=== PATIENT | male | born 1975 | race Caucasian/White ===

== ENCOUNTER 2018-11-26 15:42 | Inpatient (IN) | payer MEDICAID ==
[~2018-11-26] VITALS: Ht 160 cm; Wt 72.2 kg
[2018-11-26] MEDS ORDERED: HYDROmorphONE 1 MG/ML SYG IV STA ×2 (17:40→19:50)
[2018-11-26] MEDS ORDERED: ONDANSETRON 4 MG INJ IV STA ×2 (17:40→19:50)
[2018-11-26] MEDS ORDERED: SOD CHLORIDE 0.9% 1,000 ML IV STA ×2 (17:40→19:50)
[2018-11-26] MEDS ORDERED: IOHEXOL 300MG/ML 150 ML BTL ONE (18:37)
[2018-11-26] MEDS ORDERED: SOD CHLORIDE 0.9% 100 ML ONE (18:37)
[2018-11-26] MEDS ORDERED: PIPER-TAZO 3.375 GM IV (PMX) 100 ML IVPB STA (19:14)
--- NOTE | 2018-11-26 19:31 | ERD ---
ER Documentation Chief Complaint Chief Complaint ABD PAIN X 6 DAYS DENIES N/V HPI This is a 43-year-old male with no past medical history the presents to the emergency department complaining of a severe onset of abdominal pain. The abdominal pain started at 8 AM this morning roughly 12 hours prior to arrival. The patient had coffee at that time and shortly after had an episode of nonbloody nonbilious emesis. The pain initially started around the patient's bellybutton. He indicates the pain has become diffuse. He states the pain is 10 out of 10 in intensity. No alleviating or exacerbating factors to the pain. Contrary to the triage note the patient states the pain is not been present for 6 days but rather is 8 AM this morning. He denies any past surgical history. He said no fevers or shaking no chills. He has been unable to tolerate oral intake. He denies any hemoptysis hematemesis or melanotic stools. No shortness of breath at rest or exertion. No chest pain or pressure. ROS All systems reviewed and are negative except as per history of present illness. Allergies Allergies: Coded Allergies: No Known Allergy (Unverified , 11/26/18) PMhx/Soc Medical and Surgical Hx: pt denies Medical Hx, pt denies Surgical Hx Hx Alcohol Use: No Hx Substance Use: No Hx Tobacco Use: Yes Smoking Status: Current some day smoker Physical Exam Vitals Vital Signs Date Temp Pulse Resp B/P (MAP) Pulse Ox O2 O2 Flow FiO2 Time Delivery Rate 11/26/18 98.0 98 18 151/92 99 15:50 (111) Physical Exam Constitutional:Well-developed. Well-nourished. Patient has severe amount of p ain. Tearful. HEENT:Normocephalic. Atraumatic.Pupils were equal round reactive to light. Dry mucous membranes.No tonsillar exudates. Neck: No nuchal rigidity. No lymphadenopathy. No posterior cervical spine tenderness or step-offs. Respiratory: Not using accessory muscles of respiration.Lungs were clear to auscultation bilaterally. No rhonchi. No rales. No wheezing. Cardiovascular: Regular rate regular rhythm.No murmurs. No rubs were appreciated.S1, S2 normal. Distal pulses are palpable 2+ bilaterally. GI: Abdomen was soft. Voluntary guarding. Diffuse tenderness. Tenderness in the right lower quadrant over McBurney's point. Psoas sign negative. Obturator sign negative. Muscle skeletal: Full range of motion of both the upper and lower extremities bilaterally.Normal muscle tone.No assymetrical calf tenderness or swelling. Skin: No petechia, no purpura. No lesions on the palms or the soles of the feet. No maculopapular rash. NEURO: Patient was alert, awake, orientated x3.No facial droop. Gait observed and normal with no ataxia.Speech had regular rate and rhythm. No focal neurolo gical deficits. Result Diagram: 11/26/18174611/26/181746 Results 24 hrs Laboratory Tests Test 11/26/18 17:47 White Blood Count 15.2 10^3/ul Red Blood Count 5.05 10^6/ul Hemoglobin 15.3 g/dl Hematocrit 43.6 % Mean Corpuscular Volume 86.3 fl Mean Corpuscular Hemoglobin 30.3 pg Mean Corpuscular Hemoglobin Concent 35.1 g/dl Red Cell Distribution Width 11.9 % Platelet Count 255 10^3/UL Mean Platelet Volume 9.5 fl Immature Granulocytes % 0.300 % Neutrophils % 83.9 % Lymphocytes % 10.6 % Monocytes % 5.0 % Eosinophils % 0.1 % Basophils % 0.1 % Nucleated Red Blood Cells % 0.0 /100WBC Immature Granulocytes # 0.050 10^3/ul Neutrophils # 12.8 10^3/ul Lymphocytes # 1.6 10^3/ul Monocytes # 0.8 10^3/ul Eosinophils # 0.0 10^3/ul Basophils # 0.0 10^3/ul Nucleated Red Blood Cells # 0.0 10^3/ul Prothrombin Time 11.7 Sec Prothrombin Time Ratio 0.9 INR International Normalized Ratio 0.85 Activated Partial Thromboplast Time 29.6 Sec Sodium Level 139 mmol/L Potassium Level 4.1 mmol/L Chloride Level 103 mmol/L Carbon Dioxide Level 21 mmol/L Anion Gap 15 Blood Urea Nitrogen 16 mg/dl Creatinine 0.65 mg/dl Est Glomerular Filtrat Rate mL/min > 60 mL/min Glucose Level 119 mg/dl Calcium Level 10.2 mg/dl Total Bilirubin 1.0 mg/dl Direct Bilirubin 0.00 mg/dl Indirect Bilirubin 1.0 mg/dl Aspartate Amino Transf (AST/SGOT) 32 IU/L Alanine Aminotransferase (ALT/SGPT) 35 IU/L Alkaline Phosphatase 80 IU/L Troponin I < 0.012 ng/ml Total Protein 8.2 g/dl Albumin 4.9 g/dl Globulin 3.30 g/dl Albumin/Globulin Ratio 1.48 Amylase Level 76 U/L Lipase 38 U/L Current Medications Medications Dose Sig/Sloan Start Time Status Last (Trade) Ordered Route PRN Stop Time Admin Dose Reason Admin Sodium 1,000 ml @ Q1H STAT 11/26/18 DC 11/26/18 Chloride 1,000 mls/hr IV 17:40 17:51 11/26/18 18:39 1 mg ONCE STAT 11/26/18 DC 11/26/18 Hydromorphone IV 17:40 17:50 HCl 11/26/18 17:42 (Dilaudid) Ondansetron 4 mg ONCE STAT 11/26/18 DC 11/26/18 HCl (Zofran IV 17:40 17:50 Inj) 11/26/18 17:42 Sodium 100 ml @ ud STK-MED 11/26/18 DC 11/26/18 Chloride ONCE .ROUTE 18:37 19:02 11/26/18 18:38 Iohexol 150 ml STK-MED 11/26/18 DC 11/26/18 (Omnipaque ONCE .ROUTE 18:37 19:02 300mg/ ml) 11/26/18 18:38 Piperacillin 100 ml @ ONCE STAT 11/26/18 Sod/ 200 mls/hr IVPB 19:14 Tazobactam 11/26/18 19:43 Sod Procedures/MDM This patient presented to the emergency department with abdominal pain and was seen and evaluated by myself. My differential diagnosis included but was not limited to abdominal aortic aneurysm, appendicitis, pancreatitis, perforated peptic ulcer, perforated viscus, Boerhaave's syndrome or visceral pain such as diverticulitis, DKA, esophagitis, hepatitis or bowel obstruction. The patient was placed on a laboratory monitor, continuous pulse oximetry, and IV access was established by nursing staff. The patient was given intravenous Dilaudid and Zofran with minimal improvement of his pain. I did obtain a 12-lead EKG tracing to rule out for atypical myocardial infarction. 12 Lead EKG tracing ordered and reviewed by myself showed: Normal sinus rhythm of 77 bpm and no arrhythmia. OH interval normal. QRS duration normal. No ST segment elevation No ST segment depression. No changes consistent with acute ischemia. I obtained a CT scan of the patient's abdomen. This was reviewed by the ra diologist myself. The patient did have a nonruptured appendicitis. He also had sigmoid diverticulosis. The patient at this time had a surgical consult placed to Dr. Brunner. The patient was made n.p.o. He was given IV Zosyn. He required a further dose of analgesic medication. He will be admitted to the hospitalist in serious condition. I obtained a 1 view chest radiograph and there is no in filtrates no free air underneath the diaphragm. Critical Care: Time: 65 minutes Treatments/Evaluations: Close monitoring and treatment of unstable vital signs, cardiorespiratory, and neurologic status, while maintaining tight balance of fluid, respiratory, and cardiac interventions. Time does not include performing any of the above billable procedures. Departure Diagnosis: Primary Impression: Appendicitis Appendicitis type: acute appendicitis Acute appendicitis type: unspecified acute appendicitis type Qualified Codes: K35.80 - Unspecified acute appendicitis Condition: Serious JOSE GREEN MD Nov 26, 2018 19:31
[2018-11-26 22:30] VITALS: BP 155/95; PULSE 73; RESP 18
[2018-11-26 22:43] VITALS: Ht 160 cm; Wt 72.2 kg
[2018-11-26] MEDS ORDERED: ONDANSETRON 4 MG INJ IV PRN (23:00)
[2018-11-26] MEDS ORDERED: ACETAMINOPHEN 650 MG SUPP PR PRN (23:00)
[2018-11-26] MEDS: morphine 2 MG INJ IV PRN (23:26)
[2018-11-26] MEDS: DEXTROSE 5%-0.45% NACL 1,000 ML IV SCH (23:26)
[2018-11-26] MEDS: NACL 0.9% 3 ML SYG IV SCH (23:27)
[2018-11-26] MEDS: PIPER-TAZO 3.375 GM IV (PMX) 100 ML IVPB SCH (23:37)
--- NOTE | 2018-11-26 23:58 | HP ---
Date/Time of Note Date/Time of Note DATE: 11/26/18 TIME: 23:58 Assessment/Plan VTE Prophylaxis Pharmacological prophylaxis: heparin Lines/Catheters IV Catheter Type (from Nrsg): Saline Lock Assessment/Plan Assessment/Plan 1. Acute Appendicitis -keep NPO with IVF -IV Abx -Pain mgmt -Awaiting surgical Eval 2. Diverticulosis with possible mild early diverticulitis -Pt will be NPO and on Abx as above 3. SIRS vs Sepsis: as evidenced by leukocytosis and tachycardia -IVF, abx -see #1 and 2 Result Diagram: 11/26/18174611/26/181746 Results 24hrs Laboratory Tests Test 11/26/18 17:47 White Blood Count 15.2 H Red Blood Count 5.05 Hemoglobin 15.3 Hematocrit 43.6 Mean Corpuscular Volume 86.3 Mean Corpuscular Hemoglobin 30.3 Mean Corpuscular Hemoglobin Concent 35.1 Red Cell Distribution Width 11.9 Platelet Count 255 Mean Platelet Volume 9.5 Immature Granulocytes % 0.300 Neutrophils % 83.9 H Lymphocytes % 10.6 L Monocytes % 5.0 Eosinophils % 0.1 Basophils % 0.1 Nucleated Red Blood Cells % 0.0 Immature Granulocytes # 0.050 H Neutrophils # 12.8 H Lymphocytes # 1.6 Monocytes # 0.8 Eosinophils # 0.0 Basophils # 0.0 Nucleated Red Blood Cells # 0.0 Prothrombin Time 11.7 L Prothrombin Time Ratio 0.9 INR International Normalized Ratio 0.85 Activated Partial Thromboplast Time 29.6 Sodium Level 139 Potassium Level 4.1 Chloride Level 103 Carbon Dioxide Level 21 Anion Gap 15 H Blood Urea Nitrogen 16 Creatinine 0.65 Est Glomerular Filtrat Rate mL/min > 60 Glucose Level 119 Calcium Level 10.2 Total Bilirubin 1.0 Direct Bilirubin 0.00 Indirect Bilirubin 1.0 Aspartate Amino Transf (AST/SGOT) 32 Alanine Aminotransferase (ALT/SGPT) 35 Alkaline Phosphatase 80 Troponin I < 0.012 Total Protein 8.2 H Albumin 4.9 Globulin 3.30 H Albumin/Globulin Ratio 1.48 Amylase Level 76 Lipase 38 HPI/ROS Admit Date/Time Admit Date/Time Nov 26, 2018 at 20:39 Hx of Present Illness Patient is a 43 yo male with so significant PMH who presented to ER c/o abd pain. Pain started this am and mainly localized in mel-umblical area. Reported associated nausea. Denied diarrhea, fever, chills. In ER, CT with finding of acute appendicitis and sigmoid diverticulosis with mild thickening of the colonic wall likely reflecting chronic change. WBC 15K. PMH/Family/Social Past Medical History Past Surgical Hx: other (see HPI) Family History Significant Family History: no pertinent family hx Social History Alcohol Use: none Smoking Status: Never smoker Drug Use: none Exam Constitutional: No acute distress Head: normocephalic, atraumatic Eyes: EOMI, PERRL Respiratory: no distress Cardiovascular: regular rate and rhythm Gastrointestinal: soft Extremities: normal pulses Medications Current Medications Dextrose/Sodium Chloride 1,000 ml @ 120 mls/hr Q8H20M IV Last administered on 11/26/18 23:26; Admin Dose 120 MLS/HR; Start 11/26/18 at 22:42 IV Flush (NS 3 ml) 3 ml PER PROTOCOL IV Last administered on 11/26/18 23:27; Admin Dose 3 ML; Start 11/26/18 at 23:00 Ondansetron HCl (Zofran Inj) 4 mg Q6H PRN IV NAUSEA/VOMITING; Start 11/26/18 at 23:00 Acetaminophen (Tylenol Supp) 650 mg Q6H PRN [place] .PAIN 1-3 OR TEMP; Start 11/26/18 at 23:00 Morphine Sulfate (morphine) 2 mg Q4H PRN IV .SEVERE PAIN 7-10 Last administered on 11/26/18at 23:26; Admin Dose 2 MG; Start 11/26/18 at 23:00 Piperacillin Sod/ Tazobactam Sod 100 ml @ 200 mls/hr Q6 IVPB Last administered on 11/26/18at 23:37; Admin Dose 200 MLS/HR; Start 11/27/18 at 00:00 Coded Allergies: No Known Allergy (Unverified , 11/26/18) Social History Smoking Status: Current every day smoker Exam/Review of Systems Vital Signs Vitals Vital Signs Date Temp Pulse Resp B/P (MAP) Pulse Ox O2 O2 Flow FiO2 Time Delivery Rate 11/26/18 72 20 149/98 98 Room Air 22:02 (115) 11/26/18 98.0 19:27 JV WEBB MD Nov 26, 2018 23:58
[2018-11-27] VITALS (15 sets, daily range): BP systolic 100–148; BP diastolic 52–91; PULSE 72–92; RESP 11–18
--- NOTE | 2018-11-27 00:34 | CONS ---
Assessment/Plan Assessment/Plan Assessment/Plan (Daily) 43-year-old male presents with abdominal pain mid abdomen right lower quadrant suspicious for acute appendicitis without evidence of rupture. Recommendation keep patient n.p.o. IV fluids IV antibiotics and laparoscopic appendectomy as soon as or time can be arranged. Details the procedure risk elin efits alternatives were discussed patient agrees to proceed and we will bring patient operating room as soon as or time can be arranged. In the event that I am not available coverage Surgeon Dr. Weems will assume care Consultation Date/Type/Reason Admit Date/Time Nov 26, 2018 at 20:39 Date of Consultation: Nov 26, 2018 Type of Consult General surgery Reason for Consultation Abdominal pain suspicious for appendicitis Requesting Provider: JOSE GREEN MD Date/Time of Note DATE: 11/27/18 TIME: 00:30 Hx of Present Illness Patient presented to the emergency room with severe abdominal pain in the mid abdomen and localized to the right lower quadrant. Evaluation emergency room with imaging, CAT scan, labs revealed an elevated white blood cell count of 15,000 and CAT scan with dilated inflamed appendix without evidence of perforation. patient denies any similar symptoms to this in the past Patient denies any significant past medical history. Patient denies any past surgical history Past Medical History Medications Current Medications Dextrose/Sodium Chloride 1,000 ml @ 120 mls/hr Q8H20M IV Last administered on 11/26/18at 23:26; Admin Dose 120 MLS/HR; Start 11/26/18 at 22:42 IV Flush (NS 3 ml) 3 ml PER PROTOCOL IV Last administered on 11/26/18at 23:27; Admin Dose 3 ML; Start 11/26/18 at 23:00 Ondansetron HCl (Zofran Inj) 4 mg Q6H PRN IV NAUSEA/VOMITING; Start 11/26/18 at 23:00 Acetaminophen (Tylenol Supp) [address] .PAIN 1-3 OR TEMP; Start 11/26/18 at 23:00 Morphine Sulfate (morphine) 2 mg Q4H PRN IV .SEVERE PAIN 7-10 Last administered on 11/26/18at 23:26; Admin Dose 2 MG; Start 11/26/18 at 23:00 Piperacillin Sod/ Tazobactam Sod 100 ml @ 200 mls/hr Q6 IVPB Last administered on 7/19/19at 23:37; Admin Dose 200 MLS/HR; Start 11/27/18 at 00:00 Allergies: Coded Allergies: No Known Allergy (Unverified , 11/26/18) Social History Smoking Status: Current every day smoker Exam/Review of Systems Exam Vitals Vital Signs Date Temp Pulse Resp B/P (MAP) Pulse Ox O2 O2 Flow FiO2 Time Delivery Rate 11/26/18 72 20 149/98 98 Room Air 22:02 (115) 11/26/18 98.0 19:27 Intake and Output 11/26/18 11/26/18 11/27/18 1515:00 23:00 07:00 IntakeIntake Total 1200 ml BalanceBalance 1200 ml Exam Awake alert oriented x3 Lungs clear to auscultation Heart regular rate and rhythm normal S1-S2 Abdomen nondistended soft marked tenderness right lower quadrant at McBurney's point Results Result Diagram: 11/26/18 1747 11/26/18 1747 Results 24hrs Laboratory Tests Test 11/26/18 17:47 White Blood Count 15.2 H Red Blood Count 5.05 Hemoglobin 15.3 Hematocrit 43.6 Mean Corpuscular Volume 86.3 Mean Corpuscular Hemoglobin 30.3 Mean Corpuscular Hemoglobin Concent 35.1 Red Cell Distribution Width 11.9 Platelet Count 255 Mean Platelet Volume 9.5 Immature Granulocytes % 0.300 Neutrophils % 83.9 H Lymphocytes % 10.6 L Monocytes % 5.0 Eosinophils % 0.1 Basophils % 0.1 Nucleated Red Blood Cells % 0.0 Immature Granulocytes # 0.050 H Neutrophils # 12.8 H Lymphocytes # 1.6 Monocytes # 0.8 Eosinophils # 0.0 Basophils # 0.0 Nucleated Red Blood Cells # 0.0 Prothrombin Time 11.7 L Prothrombin Time Ratio 0.9 INR International Normalized Ratio 0.85 Activated Partial Thromboplast Time 29.6 Sodium Level 139 Potassium Level 4.1 Chloride Level 103 Carbon Dioxide Level 21 Anion Gap 15 H Blood Urea Nitrogen 16 Creatinine 0.65 Est Glomerular Filtrat Rate mL/min > 60 Glucose Level 119 Calcium Level 10.2 Total Bilirubin 1.0 Direct Bilirubin 0.00 Indirect Bilirubin 1.0 Aspartate Amino Transf (AST/SGOT) 32 Alanine Aminotransferase (ALT/SGPT) 35 Alkaline Phosphatase 80 Troponin I < 0.012 Total Protein 8.2 H Albumin 4.9 Globulin 3.30 H Albumin/Globulin Ratio 1.48 Amylase Level 76 Lipase 38 Medications Medication Current Medications Dextrose/Sodium Chloride 1,000 ml @ 120 mls/hr Q8H20M IV Last administered on 11/26/18 23:26; Admin Dose 120 MLS/HR; Start 11/26/18 at 22:42 IV Flush (NS 3 ml) 3 ml PER PROTOCOL IV Last administered on 11/26/18 23:27; Admin Dose 3 ML; Start 11/26/18 at 23:00 Ondansetron HCl (Zofran Inj) 4 mg Q6H PRN IV NAUSEA/VOMITING; Start 11/26/18 at 23:00 Acetaminophen (Tylenol Supp) [address] .PAIN 1-3 OR TEMP; Start 11/26/18 at 23:00 Morphine Sulfate (morphine) 2 mg Q4H PRN IV .SEVERE PAIN 7-10 Last administered on 11/26/18 23:26; Admin Dose 2 MG; Start 11/26/18 at 23:00 Piperacillin Sod/ Tazobactam Sod 100 ml @ 200 mls/hr Q6 IVPB Last administered on 11/26/18 23:37; Admin Dose 200 MLS/HR; Start 11/27/18 at 00:00 JV ALVES MD Nov 27, 2018 00:34
[2018-11-27] MEDS: NACL 0.9% 3 ML SYG IV SCH ×2 (03:41→08:17)
[2018-11-27] MEDS: morphine 2 MG INJ IV PRN ×2 (03:41→08:17)
[2018-11-27] MEDS: PIPER-TAZO 3.375 GM IV (PMX) 100 ML IVPB SCH ×4 (05:48→23:53)
[2018-11-27] MEDS: DEXTROSE 5%-0.45% NACL 1,000 ML IV SCH ×2 (08:17→15:22)
--- NOTE | 2018-11-27 08:35 | PREAC ---
Date/Time of Note Date/Time of Note DATE: 11/27/18 TIME: 08:34 Anesthesia Eval and Record Evaluation Time Pre-Procedure Interview DATE: 11/27/18 TIME: 08:34 Age 43 Sex male NPO: 8 hrs Preoperative diagnosis acute appendicitis Planned procedure laparoscopic appendectomy Past Medical History Past Medical History: Includes GI: Other (diverticulosis) Surgery & Anesthesia Issues No known issue Meds Anticoagulation: No Beta Octavio within 24 hr: No Reason Beta Octavio not given: Pt. not on B-Octavio Current Medications Dextrose/Sodium Chloride 1,000 ml @ 120 mls/hr Q8H20M IV Last administered on 11/27/18at 08:17; Admin Dose 120 MLS/HR; Start 11/26/18 at 22:42 IV Flush (NS 3 ml) 3 ml PER PROTOCOL IV Last administered on 11/27/18at 08:17; Admin Dose 3 ML; Start 11/26/18 at 23:00 Ondansetron HCl (Zofran Inj) 4 mg Q6H PRN IV NAUSEA/VOMITING; Start 11/26/18 at 23:00 Acetaminophen (Tylenol Supp) 650 mg Q6H PRN [place] .PAIN 1-3 OR TEMP; Start 11/26/18 at 23:00 Morphine Sulfate (morphine) 2 mg Q4H PRN IV .SEVERE PAIN 7-10 Last administered on 11/27/18at 08:17; Admin Dose 2 MG; Start 11/26/18 at 23:00 Piperacillin Sod/ Tazobactam Sod 100 ml @ 200 mls/hr Q6 IVPB Last administered on 11/27/18at 05:48; Admin Dose 200 MLS/HR; Start 11/27/18 at 00:00 Meds reviewed: Yes Allergies Coded Allergies: No Known Allergy (Unverified , 11/26/18) Allergies Reviewed: Yes Labs/Studies Labs Reviewed: Reviewed by anesthesiologist Result Diagram: 11/27/1845 11/27/1845 Laboratory Tests 11/27/18 05:45 test: N/A Pre-procedure Exam Last vitals Vital Signs Date Temp Pulse Resp B/P (MAP) Pulse Ox O2 O2 Flow FiO2 Time Delivery Rate 11/27/18 99.1 77 18 127/67 98 08:00 (87) 11/26/18 Room Air 22:02 Airway: Adequate mouth opening, Adequate thyromental dist Mallampati: Mallampati II Teeth: Normal Lung: Normal Heart: Normal ASA Physical Status ASA physical status: 2 Emergency: None Planned Anesthetic General/MAC: ETT Nerve block: TAP (bilateral) Planned Pain Management Single shot nerve block, Parenteral pain med Pre-operative Attestations Prior to commencing anesthesia and surgery, the patient was re-evaluated, there was verification of: *The patient's identity *The results of appropriate recent lab work and preoperative vital signs *The above evaluation not changing prior to induction *Anesthetic plan, risk benefits, alternative and complications discussed with patient/family; questions answered; patient/family understands, accepts and wishes to proceed. Machine Shop Worker used RONNIE FARLEY MD Nov 27, 2018 08:35
[2018-11-27] MEDS ORDERED: ROCURONIUM 50 MG INJ ONE (08:53)
[2018-11-27] MEDS ORDERED: ROPIVACAINE 0.5 % 30 ML VIAL ONE (08:53)
--- NOTE | 2018-11-27 09:05 | PN ---
Date/Time of Note Date/Time of Note DATE: 11/27/18 TIME: 09:03 Assessment/Plan VTE Prophylaxis Risk score (from [facility] [place])>0 risk: 1 SCD applied (from Ns): Yes Pharmacological prophylaxis: NA/contraindicated Pharm contraindication: low risk/ambulating Lines/Catheters IV [facility] Saline Lock Assessment/Plan Hospital Course 1. Acute Appendicitis -keep NPO Continue IV fluids Continue antibiotics -Pain mgmt Plan for surgery today 2. Diverticulosis with possible mild early diverticulitis Surgeon following. Continue IV fluids Continue antibiotics 3. SIRS vs Sepsis: as evidenced by leukocytosis and tachycardia -IVF, abx Antipyretics as needed for fever Disposition plan. Still reports of pain. Continue analgesics. Plan for surgery today. Monitor in-house. Discussed POC with Dr. Lucero Result Diagram: 11/27/1845 11/27/18 0545 Results 24hrs Laboratory Tests Test 11/26/18 17:47 11/27/18 05:45 White Blood Count 15.2 H 13.7 H Red Blood Count 5.05 4.57 L Hemoglobin 15.3 13.9 L Hematocrit 43.6 39.9 L Mean Corpuscular Volume 86.3 87.3 Mean Corpuscular Hemoglobin 30.3 30.4 Mean Corpuscular Hemoglobin Concent 35.1 34.8 Red Cell Distribution Width 11.9 11.9 Platelet Count 255 232 Mean Platelet Volume 9.5 9.7 Immature Granulocytes % 0.300 0.400 Neutrophils % 83.9 H 78.5 H Lymphocytes % 10.6 L 12.6 L Monocytes % 5.0 8.3 Eosinophils % 0.1 0.1 Basophils % 0.1 0.1 Nucleated Red Blood Cells % 0.0 0.0 Immature Granulocytes # 0.050 H 0.060 H Neutrophils # 12.8 H 10.7 H Lymphocytes # 1.6 1.7 Monocytes # 0.8 1.1 H Eosinophils # 0.0 0.0 Basophils # 0.0 0.0 Nucleated Red Blood Cells # 0.0 0.0 Prothrombin Time 11.7 L Prothrombin Time Ratio 0.9 INR International Normalized Ratio 0.85 Activated Partial Thromboplast Time 29.6 Sodium Level 139 139 Potassium Level 4.1 3.6 Chloride Level 103 105 Carbon Dioxide Level 21 24 Anion Gap 15 H 10 # Blood Urea Nitrogen 16 8 Creatinine 0.65 0.56 L Est Glomerular Filtrat Rate mL/min > 60 > 60 Glucose Level 119 149 Calcium Level 10.2 8.3 L Total Bilirubin 1.0 1.2 Direct Bilirubin 0.00 0.00 Indirect Bilirubin 1.0 1.2 H Aspartate Amino Transf (AST/SGOT) 32 25 Alanine Aminotransferase (ALT/SGPT) 35 28 Alkaline Phosphatase 80 55 Troponin I < 0.012 Total Protein 8.2 H 6.7 # Albumin 4.9 3.7 # Globulin 3.30 H 3.00 Albumin/Globulin Ratio 1.48 1.23 Amylase Level 76 Lipase 38 Phosphorus Level 3.4 Magnesium Level 1.9 Subjective 24 Hr Interval Summary Free Text/Dictation Patient seen. RN at bedside. Still reports pain on right lower abdominal quadrant. Tentative plan for surgery today. Exam/Review of Systems Exam Vitals Vital Signs Date Temp Pulse Resp B/P (MAP) Pulse Ox O2 O2 Flow FiO2 Time Delivery Rate 11/27/18 99.1 77 18 127/67 98 08:00 (87) 11/26/18 Room Air 22:02 Intake and Output 11/26/18 11/26/18 11/27/18 1515:00 23:00 07:00 IntakeIntake Total 1200 ml 1040 ml BalanceBalance 1200 ml 1040 ml Constitutional: alert, oriented Psych: nl mood/affect Head: normocephalic Neck: supple, non-tender Respiratory: clear to auscultation Cardiovascular: regular rate and rhythm Gastrointestinal: soft, tender Neurological: ASSEMBLY LEAD PERSON II-XII intact, nl mental status, nl speech Skin: nl turgor Results Results 24hrs Laboratory Tests Test 11/26/18 17:47 11/27/18 05:45 White Blood Count 15.2 H 13.7 H Red Blood Count 5.05 4.57 L Hemoglobin 15.3 13.9 L Hematocrit 43.6 39.9 L Mean Corpuscular Volume 86.3 87.3 Mean Corpuscular Hemoglobin 30.3 30.4 Mean Corpuscular Hemoglobin Concent 35.1 34.8 Red Cell Distribution Width 11.9 11.9 Platelet Count 255 232 Mean Platelet Volume 9.5 9.7 Immature Granulocytes % 0.300 0.400 Neutrophils % 83.9 H 78.5 H Lymphocytes % 10.6 L 12.6 L Monocytes % 5.0 8.3 Eosinophils % 0.1 0.1 Basophils % 0.1 0.1 Nucleated Red Blood Cells % 0.0 0.0 Immature Granulocytes # 0.050 H 0.060 H Neutrophils # 12.8 H 10.7 H Lymphocytes # 1.6 1.7 Monocytes # 0.8 1.1 H Eosinophils # 0.0 0.0 Basophils # 0.0 0.0 Nucleated Red Blood Cells # 0.0 0.0 Prothrombin Time 11.7 L Prothrombin Time Ratio 0.9 INR International Normalized Ratio 0.85 Activated Partial Thromboplast Time 29.6 Sodium Level 139 139 Potassium Level 4.1 3.6 Chloride Level 103 105 Carbon Dioxide Level 21 24 Anion Gap 15 H 10 # Blood Urea Nitrogen 16 8 Creatinine 0.65 0.56 L Est Glomerular Filtrat Rate mL/min > 60 > 60 Glucose Level 119 149 Calcium Level 10.2 8.3 L Total Bilirubin 1.0 1.2 Direct Bilirubin 0.00 0.00 Indirect Bilirubin 1.0 1.2 H Aspartate Amino Transf (AST/SGOT) 32 25 Alanine Aminotransferase (ALT/SGPT) 35 28 Alkaline Phosphatase 80 55 Troponin I < 0.012 Total Protein 8.2 H 6.7 # Albumin 4.9 3.7 # Globulin 3.30 H 3.00 Albumin/Globulin Ratio 1.48 1.23 Amylase Level 76 Lipase 38 Phosphorus Level 3.4 Magnesium Level 1.9 Medications Medication Current Medications Dextrose/Sodium Chloride 1,000 ml @ 120 mls/hr Q8H20M IV Last administered on 11/27/18 08:17; Admin Dose 120 MLS/HR; Start 11/26/18 at 22:42 IV Flush (NS 3 ml) 3 ml PER PROTOCOL IV Last administered on 11/27/18at 08:17; Admin Dose 3 ML; Start 11/26/18 at 23:00 Ondansetron HCl (Zofran Inj) 4 mg Q6H PRN IV NAUSEA/VOMITING; Start 11/26/18 at 23:00 Acetaminophen (Tylenol Supp) 650 mg Q6H PRN [place] .PAIN 1-3 OR TEMP; Start 11/26/18 at 23:00 Morphine Sulfate (morphine) 2 mg Q4H PRN IV .SEVERE PAIN 7-10 Last administered on 11/27/18at 08:17; Admin Dose 2 MG; Start 11/26/18 at 23:00 Piperacillin Sod/ Tazobactam Sod 100 ml @ 200 mls/hr Q6 IVPB Last administered on 11/27/18at 05:48; Admin Dose 200 MLS/HR; Start 11/27/18 at 00:00 LEX AGUILERA NP Nov 27, 2018 09:05
[2018-11-27] MEDS ORDERED: morphine 2 MG INJ IV STA (09:52)
[2018-11-27] MEDS ORDERED: FENTAnyl 50 MCG/ML VIAL ONE (10:20)
[2018-11-27] MEDS ORDERED: PROPOFOL 20 ML ONE (10:20)
[2018-11-27] MEDS ORDERED: MIDAZOLAM 1 MG/ML 2 ML INJ ONE (10:20)
[2018-11-27] MEDS ORDERED: SUCCINYLCHOLINE CHLORIDE 100 MG/5 ML SYG IV ONE (10:20)
[2018-11-27] MEDS ORDERED: LIDOCAINE 2% (SDV) 5 ML INJ ONE (10:20)
[2018-11-27] MEDS ORDERED: BUPIVACAINE 0.25%/EPI (SDV) 30 ML INJ ONE (10:38)
--- NOTE | 2018-11-27 10:38 | CONS ---
Assessment/Plan Assessment/Plan Hospital Course (Demo Recall) Patient admitted to the hospital received fluids and pain medication and antibiotics, CT showed Acute appendicitis -- pt was scheduled for the OR overnight bc of other emergency cases the case was pushed to early am and the care was tx to Dr. Almaguer Assessment/Plan (Daily) Acute appendicitis, SIRS, possible early diverticulitis Plan for Lap appendectomy, possible open, Continue IV antibx, pain control, Sepsis protocol w fluids. Consultation Date/Type/Reason Admit Date/Time Nov 26, 2018 at 20:39 Type of Consult Gen Surg Reason for Consultation Evaluation of acute appendicitis -- care of pt was transferred to [place] from Dr. Moses overnight OR was busy with emergency and could not accommodate this case. Date/Time of Note DATE: 11/27/18 TIME: 10:31 Hx of Present Illness Patient is a 43 yo male with so significant PMH who presented to ER c/o abd pain. Pain started this am and mainly localized in mel-umblical area. Reported associated nausea. Denied diarrhea, fever, chills. In ER, CT with finding of acute appendicitis and sigmoid diverticulosis with mild thickening of the colonic wall likely reflecting chronic change. WBC 15K. Past Medical History Medications Current Medications Dextrose/Sodium Chloride 1,000 ml @ 120 mls/hr Q8H20M IV Last administered on 11/27/18at 08:17; Admin Dose 120 MLS/HR; Start 11/26/18 at 22:42 IV Flush (NS 3 ml) 3 ml PER PROTOCOL IV Last administered on 11/27/18at 08:17; Admin Dose 3 ML; Start 11/26/18 at 23:00 Ondansetron HCl (Zofran Inj) 4 mg Q6H PRN IV NAUSEA/VOMITING; Start 11/26/18 at 23:00 Acetaminophen (Tylenol Supp) 650 mg Q6H PRN [place] .PAIN 1-3 OR TEMP; Start 11/26/18 at 23:00 Morphine Sulfate (morphine) 2 mg Q4H PRN IV .SEVERE PAIN 7-10 Last administered on 11/27/18at 08:17; Admin Dose 2 MG; Start 11/26/18 at 23:00 Piperacillin Sod/ Tazobactam Sod 100 ml @ 200 mls/hr Q6 IVPB Last administered on 11/27/18at 05:48; Admin Dose 200 MLS/HR; Start 11/27/18 at 00:00 Allergies: Coded Allergies: No Known Allergy (Unverified , 11/26/18) Social History Smoking Status: Current every day smoker Exam/Review of Systems Exam Vitals Vital Signs Date Temp Pulse Resp B/P (MAP) Pulse Ox O2 O2 Flow FiO2 Time Delivery Rate 11/27/18 99.1 77 18 127/67 98 08:00 (87) 11/26/18 Room Air 22:02 Intake and Output 11/26/18 11/26/18 11/27/18 1515:00 23:00 07:00 IntakeIntake Total 1200 ml 1040 ml BalanceBalance 1200 ml 1040 ml Results Result Diagram: 11/27/18 0545 11/27/18 0545 Results 24hrs Laboratory Tests Test 11/26/18 17:47 11/27/18 05:45 White Blood Count 15.2 H 13.7 H Red Blood Count 5.05 4.57 L Hemoglobin 15.3 13.9 L Hematocrit 43.6 39.9 L Mean Corpuscular Volume 86.3 87.3 Mean Corpuscular Hemoglobin 30.3 30.4 Mean Corpuscular Hemoglobin Concent 35.1 34.8 Red Cell Distribution Width 11.9 11.9 Platelet Count 255 232 Mean Platelet Volume 9.5 9.7 Immature Granulocytes % 0.300 0.400 Neutrophils % 83.9 H 78.5 H Lymphocytes % 10.6 L 12.6 L Monocytes % 5.0 8.3 Eosinophils % 0.1 0.1 Basophils % 0.1 0.1 Nucleated Red Blood Cells % 0.0 0.0 Immature Granulocytes # 0.050 H 0.060 H Neutrophils # 12.8 H 10.7 H Lymphocytes # 1.6 1.7 Monocytes # 0.8 1.1 H Eosinophils # 0.0 0.0 Basophils # 0.0 0.0 Nucleated Red Blood Cells # 0.0 0.0 Prothrombin Time 11.7 L Prothrombin Time Ratio 0.9 INR International Normalized Ratio 0.85 Activated Partial Thromboplast Time 29.6 Sodium Level 139 139 Potassium Level 4.1 3.6 Chloride Level 103 105 Carbon Dioxide Level 21 24 Anion Gap 15 H 10 # Blood Urea Nitrogen 16 8 Creatinine 0.65 0.56 L Est Glomerular Filtrat Rate mL/min > 60 > 60 Glucose Level 119 149 Calcium Level 10.2 8.3 L Total Bilirubin 1.0 1.2 Direct Bilirubin 0.00 0.00 Indirect Bilirubin 1.0 1.2 H Aspartate Amino Transf (AST/SGOT) 32 25 Alanine Aminotransferase (ALT/SGPT) 35 28 Alkaline Phosphatase 80 55 Troponin I < 0.012 Total Protein 8.2 H 6.7 # Albumin 4.9 3.7 # Globulin 3.30 H 3.00 Albumin/Globulin Ratio 1.48 1.23 Amylase Level 76 Lipase 38 Phosphorus Level 3.4 Magnesium Level 1.9 Imaging Imaging IMPRESSION: 1. Dilated appendix with hyperemia and mild periappendiceal inflammation consistent with acute appendicitis. 2. Sigmoid diverticulosis with mild thickening of the colonic wall likely reflecting chronic change. A component of mild early diverticulitis cannot be completely excluded. 3. No free fluid, free air, abscess is seen. Medications Medication Current Medications Dextrose/Sodium Chloride 1,000 ml @ 120 mls/hr Q8H20M IV Last administered on 11/27/18 08:17; Admin Dose 120 MLS/HR; Start 11/26/18 at 22:42 IV Flush (NS 3 ml) 3 ml PER PROTOCOL IV Last administered on 11/27/18 08:17; A dmin Dose 3 ML; Start 11/26/18 at 23:00 Ondansetron HCl (Zofran Inj) 4 mg Q6H PRN IV NAUSEA/VOMITING; Start 11/26/18 at 23:00 Acetaminophen (Tylenol Supp) 650 mg Q6H PRN [place] .PAIN 1-3 OR TEMP; Start 11/26/18 at 23:00 Morphine Sulfate (morphine) 2 mg Q4H PRN IV .SEVERE PAIN 7-10 Last administered on 11/27/18 08:17; Admin Dose 2 MG; Start 11/26/18 at 23:00 Piperacillin Sod/ Tazobactam Sod 100 ml @ 200 mls/hr Q6 IVPB Last administered on 11/27/18 05:48; Admin Dose 200 MLS/HR; Start 11/27/18 at 00:00 JAMES SALAZAR MD Nov 27, 2018 10:38
[2018-11-27] MEDS ORDERED: CEFAZOLIN 1 GM INJ ONE (10:41)
[2018-11-27] MEDS ORDERED: DEXAMETHASONE 4 MG/ML 5 ML INJ ONE (10:44)
[2018-11-27] MEDS ORDERED: ONDANSETRON 4 MG INJ ONE (10:44)
[2018-11-27] MEDS ORDERED: ONDANSETRON 4 MG INJ IV PRN ×2 (11:00→12:00)
[2018-11-27] MEDS ORDERED: DIPHENHYDRAMINE 50 MG INJ IV PRN ×2 (11:00→12:00)
[2018-11-27] MEDS ORDERED: PROCHLORPERAZINE 10 MG INJ IV PRN (11:00)
[2018-11-27] MEDS ORDERED: MEPERIDINE 25 MG INJ IV PRN (11:00)
[2018-11-27] MEDS ORDERED: EPHEDrine 25 MG/5 ML SYG IV PRN (11:00)
[2018-11-27] MEDS ORDERED: LABETALOL HCL 20MG INJ IV PRN (11:00)
[2018-11-27] MEDS ORDERED: hydrALAzine 20 MG INJ IV PRN (11:00)
[2018-11-27] MEDS ORDERED: FENTAnyl 50 MCG/ML VIAL IV PRN ×3 (11:00)
[2018-11-27] MEDS ORDERED: HYDROmorphONE 1 MG/5 ML IV SYRINGE IV PRN ×3 (11:00)
[2018-11-27] MEDS ORDERED: GLYCOPYRROLATE 0.4 MG INJ ONE (11:08)
[2018-11-27] MEDS ORDERED: NEOSTIGMINE 3 MG/3 ML SYRINGE ONE (11:08)
[2018-11-27] MEDS ORDERED: KETOROLAC 30 MG INJ ONE (11:09)
[2018-11-27] MEDS ORDERED: HYDROmorphONE 2 MG/ML SYG ONE (11:10)
--- NOTE | 2018-11-27 11:33 | SIPON ---
Date/Time of Note Date/Time of Note DATE: 11/27/18 TIME: 11:30 Operative Report Preoperative Diagnosis Acute Appendicitis Postoperative Diagnosis Necrotic Appendicitis Operation/Procedure Performed Laparoscopic appendectomy and TAP block anesthesia Surgeon Cirilo Weems MD assistant at surgery N/a Anesthesia: general, other Estimated blood loss: minimal Transfusion Required none Specimen appendix Grafts/Implants none Complications none CIRILO WEEMS MD Nov 27, 2018 11:33
--- NOTE | 2018-11-27 11:37 | PAC ---
Date/Time of Note Date/Time of Note DATE: 11/27/18 TIME: 11:36 Post-Anesthesia Notes Post-Anesthesia Note Last documented vital signs Vital Signs Date Temp Pulse Resp B/P (MAP) Pulse Ox O2 O2 Flow FiO2 Time Delivery Rate 11/27/18 99.1 77 18 127/67 98 08:00 (87) 11/26/18 Room Air 22:02 Activity: WNL Respiratory function: WNL Cardiovascular function: WNL Mental status: Baseline Pain reasonably controlled: Yes Hydration appropriate: Yes Nausea/Vomiting absent: Yes Comments BP: 105/62 HR: 90 RR: 15 T: 98.8 SaO2: 100% RONNIE FARLEY MD Nov 27, 2018 11:37
[2018-11-27] MEDS ORDERED: KETOROLAC 30 MG INJ IV PRN (12:00)
[2018-11-27] MEDS ORDERED: HYDROCODONE/APAP (5/325) TAB PO PRN (12:00)
[2018-11-27] MEDS: LACTATED RINGER'S 1,000 ML IV SCH ×2 (13:03→23:53)
--- NOTE | 2018-11-27 14:01 | OPR ---
DATE OF OPERATION: PREOPERATIVE DIAGNOSES: 1. Acute abdominal pain. 2. Possible acute appendicitis. 3. Sepsis. 4. Possible early diverticulitis. POSTOPERATIVE DIAGNOSES: Acute necrotic appendicitis. PROCEDURE PERFORMED: Laparoscopic appendectomy and lysis of adhesions. SURGEON: Dr. Cirilo Weems. COMPLICATIONS: None. ESTIMATED BLOOD LOSS: Minimal. SPECIMEN: Appendix. OPERATIVE NOTE: The patient was seen in the preoperative area, had a history of acute abdominal pain . CT with evidence of appendicitis and elevated white count and possible diverticulitis was noted. The patient was consented for a laparoscopic appendectomy, possible open. The patient was brought to the OR, placed in supine position. Sequential compression devices were applied to bilateral lower e xtremities. Preoperative antibiotics, Zosyn was provided to the patient at 6:00 a.m. Additional Anc ef was provided prior to incision. The patient was sedated and intubated without difficulty. Anteri or abdominal wall was prepped and draped in the usual surgical fashion. We initiated the operation a fter proper timeout was completed by the operating room team. Veress needle insufflation was perform ed through a left upper quadrant stab incision site confirming Veress needle positioning with a water drop test. Once the water drop test confirmed Veress needle position, the abdomen was insufflated w ith CO2 to approximately 12 mmHg. The patient was placed in Trendelenburg position and additional 5 mm trocar was placed in the right upper quadrant through a true direct visualization, using an Optivi ew trocar visualizing each layer of anterior abdominal while making careful entry inside the peritone al cavity. Once inside the peritoneal cavity, there was no evidence of any type of injury. Addition al trocars were placed with visualization. A 12 mm trocar at the level of the umbilicus was placed. A 5 mm trocar in the suprapubic area was placed. Next, the appendix after minimal lysis of adhesion and visualization of the necrotic appendix, we isolated the base of the appendix using 2 firings of the [place] triple stack vascular stapler. The base of the appendix was divided followed by 1 firing of the appendix itself using the [place] 45 stapler. Once the appendix was amputated and placed in an EndoCatch bag, it was externalized. The fascial opening at the umbilical site was closed with a f [id number] 0 Vicryl suture and the skin was closed in 2 layers. A 2-0 Monocryl followed by 3-0 M onoderm. It should be noted that irrigation was performed prior to closure. Dictated By: CIRILO MANN Conf#: [id number] DID#: [id number] CC: JV WEBB MD;*EndCC*
[2018-11-28 02:15] VITALS: BP 112/70; PULSE 66; RESP 15
[2018-11-28] MEDS: PIPER-TAZO 3.375 GM IV (PMX) 100 ML IVPB SCH ×2 (05:21→11:32)
[2018-11-28 07:36] VITALS: BP 114/71; PULSE 66; RESP 18
[2018-11-28] MEDS: LACTATED RINGER'S 1,000 ML IV SCH (09:13)
[2018-11-28] MEDS ORDERED: AMOX1TAB10 PO (12:42)
[2018-11-28] MEDS ORDERED: HYDR-3601 PO (12:42)
--- NOTE | 2018-11-28 12:44 | PDOCDIS ---
Discharge Instructions DIAGNOSIS Discharge Diagnosis 1. Acute Appendicitis 2. Diverticulosis with possible mild early diverticulitis 3. SIRS CONDITION [id number] Patient Condition: [id number] Stable HOME CARE INSTRUCTIONS: [id number] Diet Instructions: [id number] Low Fat /Cholesterol FOLLOW UP/APPOINTMENTS Follow-up Plan Follow up with Dr. Cirilo Weems in one week Office Address [id number] [place] [address] Office LEX AGUILERA NP Nov 28, 2018 12:44
[2018-11-28 13:57] VITALS: BP 123/72; PULSE 80; RESP 18
--- NOTE | 2018-12-02 13:08 | DS ---
Date/Time of Note Date/Time of Note DATE: 12/02/18 TIME: 13:05 Discharge Summary Admission/Discharge Info Admit Date/Time Nov 26, 2018 at 20:39 Discharge Date/Time Nov 28, 2018 at 15:35 Discharge Diagnosis 1. Acute Appendicitis 2. Diverticulosis with possible mild early diverticulitis 3. SIRS Patient Condition: Stable Hospital Course This is a 43-year-old male with no reported past medical history who came to the hospital due to reports of abdominal pain. Reports pain was mainly localized on periumbilical area. He did have CT scan of the abdomen showing findings consistent with acute appendicitis. There is also noted sigmoid diverticulosis with mild thickening of the colonic wall. He did have some leukocytosis noted. He was seen by general surgeon. He did undergo laparoscopic appendectomy and lysis of adhesions. He did tolerate procedure well and he was optimized with antibiotics. He was provided with appropriate analgesics. During his course of stay he did improve. He was provided with antibiotics and analgesics upon DC. He was advised outpatient follow-up with surgeon. The plan of care was discussed with the patient and he verbalized understanding. On the day of discharge patient was in stable condition Discussed POC with Dr. Lucero [facility] Active Scripts Amoxicillin/Potassium Clav (Amox-Clav 875-125 mg Tablet) 875-125 mg Tab, 1 TAB PO BID, #10 TAB Prov:LEX AGUILERA NP 11/28/18 Hydrocodone Bit-Acetaminophen (Hydrocodone Bit-APAP) 5-325MG Tablet, 1 TAB PO Q6H PRN for PAIN LEVEL 6-10, #20 TAB Prov:LEX AGUILERA NP 11/28/18 Follow-up Plan Follow up with Dr. Cirilo Weems in one week Office Address [id number] [address] [place] [address] Office Primary Care Provider Not On Staff Doctor Time spent on discharge: > 30 minutes LEX AGUILERA NP Dec 02, 2018 13:08
== END 2018-11-28 15:35 | disposition home or self-care (01) | DRG 342 ==
LOC: FTE 15:42 → 2NE 20:39
PROVIDERS: ADMIT Internal Medicine; ATTEND Internal Medicine
PROC: 0DTJ4ZZ Resection of Appendix, Percutaneous Endoscopic Approach (ICD-10-PCS; principal; 2018-11-27 11:30)
DX: K35.80 Unspecified acute appendicitis (principal); K57.32 Diverticulitis of large intestine without perforation or abscess without bleeding
CPT/HCPCS: 71045; 74177; 80048; 80053; 82150; 83690; 83735; 84100; 84484; 85025; 85610; 85730; 88304; 93005; 96361; 96365; 96375; 96376; J0690; J1100; J1170; J1885; J2250; J2270; J2405; J2543; J2710; J2795; J3010; J7030; J7042; J7120; Q9967